=== PATIENT | male | born 1965 | race Two or more races ===

== ENCOUNTER 2023-07-31 16:23 | Emergency (ER) | payer OTHER ==
[2023-07-31] MEDS: Diphtheria,Pertussis(Acell),Tetanus Vaccine 0.5 ML Syringe IM ONE (16:43)
[2023-07-31] MEDS: Lidocaine 1% with EPINEPHrine 1:100,000 20 ML MDV INJECT ONE (17:00)
== END 2023-07-31 17:30 | disposition home or self-care (01) ==
LOC: KA.ED 16:23
DX: S01.81XA Laceration without foreign body of other part of head, initial encounter (principal); W45.0XXA Nail entering through skin, initial encounter
CPT/HCPCS: 12013; 90471; 90715; 99282-25; 99283; J3490

== ENCOUNTER 2023-08-08 11:10 | Emergency (ER) | payer OTHER | END 2023-08-08 11:55 | disposition home or self-care (01) | LOC: KA.ED 11:10 | DX: S01.112D Laceration without foreign body of left eyelid and periocular area, subsequent encounter (principal); X58.XXXD Exposure to other specified factors, subsequent encounter | CPT/HCPCS: 99281 ==